=== PATIENT | male | born 1985 | race Caucasian/White ===

== ENCOUNTER → 2020-06-18 | Outpatient (CLI) | payer MEDICARE, OTHER ==
[~2020-06-18] MED LIST: BACTROBAN OINT22 GM EXT; BENTYL 20MG TAB20 MG PO; ZOFRAN ODT 4 MG4 MG PO
== END ==
LOC: EXRD 09:13
DX: R10.13 Epigastric pain (principal); R16.0 Hepatomegaly, not elsewhere classified; R93.5 Abnormal findings on diagnostic imaging of other abdominal regions, including retroperitoneum
CPT/HCPCS: 76700

== ENCOUNTER 2020-07-20 02:10 | Emergency (ER) | payer MEDICARE, OTHER ==
[~2020-07-20 02:10] MED LIST changes: -BENTYL 20MG TAB20 MG PO; -ZOFRAN ODT 4 MG4 MG PO
[2020-07-20 02:57] LABS: HEMOGLOBIN 13.8 gm/dl (14.0-17.5); RED BLOOD COUNT 4.77 M/UL (4.20-5.50); WHITE BLOOD COUNT 9.3 K/UL (4.5-11.0)
[2020-07-20 03:16] LABS: BUN/CREATININE RATIO 18 (0-10)
[2020-07-20] MEDS ORDERED: ZOFRAN ODT 4 MG4 MG PO (05:12)
[2020-07-20] MEDS ORDERED: BENTYL 20MG TAB20 MG PO (05:12)
== END 2020-07-20 06:05 | disposition home or self-care (01) ==
LOC: ER1 02:10
PROVIDERS: Physician Assistant
DX: K76.0 Fatty (change of) liver, not elsewhere classified (principal); R16.2 Hepatomegaly with splenomegaly, not elsewhere classified
CPT/HCPCS: 80053; 81001; 82550; 82553; 83690; 84484; 85025; 87086; 93005; 96374; 96375; 96376; 99284; J1642; J1885; J2270; J2405; Q9967